=== PATIENT | female | born 1960 | race Caucasian/White ===

== ENCOUNTER → 2017-09-26 | Outpatient (CLI) | payer MEDICAID | LOC: FIMAGING 19:35 | PROVIDERS: ATTEND Orthopaedic Surgery | DX: M54.5 Low back pain (principal); R60.9 Edema, unspecified; M79.606 Pain in leg, unspecified; R93.8 Abnormal findings on diagnostic imaging of other specified body structures ==

== ENCOUNTER → 2017-10-27 | Outpatient (CLI) | payer MEDICAID ==
[~2017-10-27] MED LIST: GADOBUTROL 10 ML VIAL IVP ONE
== END ==
LOC: FIMAGING 16:19
PROVIDERS: ATTEND Orthopaedic Surgery
DX: M89.9 Disorder of bone, unspecified (principal); R93.7 Abnormal findings on diagnostic imaging of other parts of musculoskeletal system
CPT/HCPCS: A9585